=== PATIENT | female | born 1980 | race African-American/Black ===

== ENCOUNTER → 2016-09-20 | Day surgery (SDC) | payer OTHER ==
[~2016-09-20] MED LIST: ALBU2.5V5 NEB; BECL8.7A6 IH; CETI10TA22 PO; IV RINGERS,LACTATED 1000ML 1,000 ML IV SCH; LIDOCAINE 2% PF Vial for OR 5 ML VIAL. ONE; NORG1TAB34 PO; PRAV20TA2 PO; PROPOFOL 40 ML IV ONE
[2016-09-20 09:45] VITALS: BP 132/78
[2016-09-20 10:17] LABS: NEG OBC UR NEG; POS OBC UR POS
--- NOTE | 2016-09-21 12:49 | PATHOLOGY ---
PATHOLOGY REPORT * * * * * * * * FINAL DIAGNOSIS: Colorectal biopsies, rectal polyp: - Hyperplastic polyp. COMMENT: There are no adenomatous changes or evidence of malignancy. (JPM:csd; d/t: 09/21/2016) REPORT ELECTRONICALLY SIGNED BY: Garrett Fernandez M.D. DATE/TIME: 09/21/2016 12:48 * * * * * * * * GROSS PATHOLOGY: Received in formalin labeled "Nicole Evans, rectal polyp," are 7 segments of painting soft tissue measuring 0.9 x 0.4 x 0.3 cm in aggregate dimensions and ranging from 0.3 to 0.6 cm in maximum dimension. The specimen is submitted entirely in cassette A1. (KAH; 09/20/2016) INITIAL CPT CODE(S): A; 45678 Professional services performed [place] [address] Technical services performed by [facility] at [address] [place] [address], [address] [address]. SPECIMEN(S) RECEIVED: A.Rectal polyp CLINICAL HISTORY: Screening PATIENT: NICOLE EVANS /AGE: 803/02/1980 (Age: 36) PATIENT #: [id number] ALT CASE #: SPECIMEN COLLECTION DATE: 09/20/2016 SPECIMEN RECEIVED DATE: 09/20/2016 [facility] - [address] [place] [address] - PHONE: [phone] * * * END OF REPORT * * *
== END | disposition home or self-care (01) ==
LOC: ENDOS 07:55
PROVIDERS: ATTEND Internal Medicine Gastroenterology
DX: Z12.11 Encounter for screening for malignant neoplasm of colon (principal); K62.1 Rectal polyp; K64.0 First degree hemorrhoids; Z80.0 Family history of malignant neoplasm of digestive organs; E78.00 Pure hypercholesterolemia, unspecified; J45.909 Unspecified asthma, uncomplicated; F41.9 Anxiety disorder, unspecified; F10.99 Alcohol use, unspecified with unspecified alcohol-induced disorder; F17.200 Nicotine dependence, unspecified, uncomplicated
CPT/HCPCS: 45378; 81025; 88305; J2704

== ENCOUNTER → 2021-04-07 | Outpatient (CLI) | payer OTHER ==
[2016-09-20 09:45] VITALS: BP 132/78
[~2021-04-07] MED LIST changes: +ALBU2.5V8 IH; +BUDE10.2 IH; -CETI10TA22 PO; +CETI10TA74 PO; +DIPH25CA58 PO; +DOCU-109 PO; +FLUT9.9S NS; +HYDR12.58 PO; +IBUP-1060 PO; -IV RINGERS,LACTATED 1000ML 1,000 ML IV SCH; -LIDOCAINE 2% PF Vial for OR 5 ML VIAL. ONE; +NORE-43 PO; -NORG1TAB34 PO; +NORG1TAB70 PO; +OXYC1TAB15 PO; +PRAV80TA2 PO; -PROPOFOL 40 ML IV ONE
[2021-04-07 14:36] LABS: BASO # 0.1 x10^3/uL (0.0-0.2); BASO % 1 % (0-3); EOS % 1 % (0-3); HEMATOCRIT 41.4 % (36.0-47.0); HEMOGLOBIN 14.1 g/dL (12.0-15.5); LYMPH # 2.8 x10^3/uL (1.0-4.8); LYMPH % 36 % (24-48); MEAN CORPUSCULAR HEMOGLOBIN 31 pg (25-35); MEAN CORPUSCULAR HGB CONC 34 g/dL (31-37); MEAN CORPUSCULAR VOLUME 91 fL (79-100); MONO # 0.6 x10^3/uL (0.0-1.1); MONO % 7 % (0-9); NEUT # 4.5 x10^3/uL (1.8-7.7); NEUT % 56 % (31-73); PLATELET COUNT 202 x10^3/uL (140-400); RED BLOOD COUNT 4.56 x10^6/uL (3.50-5.40); RED CELL DISTRIBUTION WIDTH 13.5 % (11.5-14.5)
== END ==
LOC: SURGPAT 13:57
PROVIDERS: ATTEND Obstetrics & Gynecology
DX: Z01.818 Encounter for other preprocedural examination (principal)
CPT/HCPCS: 36415; 85025

== ENCOUNTER 2021-04-14 09:00 | Observation (INO) | payer OTHER ==
[2021-04-07 14:37] VITALS: BP 58/90
[2021-04-14] VITALS (12 sets, daily range): BP systolic 126–156; BP diastolic 82–97
[~2021-04-14] VITALS: Ht 160 cm; Wt 73.0 kg
[~2021-04-14 09:00] MED LIST changes: -DOCU-109 PO; +HYDROmorphone 2 MG/ML VIAL IVP PRN; -IBUP-1060 PO; +IV RINGERS,LACTATED 1000ML 1,000 ML IV SCH; -OXYC1TAB15 PO; +PROCHLORPERAZINE 10 MG/2 ML VIAL. IVP PRN; +ceFAZolin SODIUM IV Push 1 GM VIAL. IVP PRN; +fentaNYL PF VIAL 100 MCG/2 ML VIAL IVP PRN
[2021-04-14] MEDS ORDERED: ROCURONIUM 50 MG/5 ML VIAL. ONE (09:40)
[2021-04-14] MEDS ORDERED: fentaNYL PF VIAL 250 MCG/5 ML VIAL ONE (09:40)
[2021-04-14] MEDS ORDERED: MIDAZOLAM HCL/PF 2 MG/2 ML VIAL. ONE (09:40)
[2021-04-14] MEDS ORDERED: ONDANSETRON PF 4 MG/2 ML VIAL. ONE (09:41)
[2021-04-14] MEDS ORDERED: PROPOFOL 10 MG/ML (20ML) VIAL. IV ONE (09:41)
[2021-04-14] MEDS ORDERED: LIDOCAINE 2% PF 5 ML VIAL. ONE (09:41)
[2021-04-14] MEDS ORDERED: DEXAMETHASONE SOD PHOS 4 MG/ML VIAL ONE (09:42)
[2021-04-14] MEDS ORDERED: INDIGOTINDISULFONATE SODIUM 40 MG/5 ML AMPUL. ONE (10:16)
[2021-04-14] MEDS ORDERED: LIDOCAINE 1%/EPI 1:100,000 20 ML VIAL. ONE (10:16)
[2021-04-14] MEDS ORDERED: cefOXitin SODIUM IV Push 1 GM VIAL. IVP ONE (10:28)
[2021-04-14] MEDS ORDERED: ESMOLOL 100 MG/10 ML VIAL. IVP ONE (10:49)
[2021-04-14] MEDS ORDERED: GLYCOPYRROLATE 1 MG/5 ML VIAL. ONE (10:59)
[2021-04-14] MEDS ORDERED: NEOSTIGMINE METHYLSULFATE 5 MG/5 ML SYRINGE. ONE (10:59)
--- NOTE | 2021-04-14 11:25 | PDOC ---
BRIEF OPERATIVE NOTE Date: Apr 14, 2021 Pre-Op Diagnosis BENITEZ 3 Post-Op Diagnosis Same Procedure Performed [facility] Surgeon Dr. 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 fallopian tubes Findings nml size uterus, nml fallopian tubes and ovaries terese.; BENITEZ 3 Complications none Operative Note see dictation PALLAVI CALVILLO Jr, MD Apr 14, 2021 11:25
[2021-04-14] MEDS ORDERED: DEXTROSE 50% 25 GM / 50ML DISP.SYRIN. IV PRN (11:30)
[2021-04-14] MEDS ORDERED: diphenhydrAMINE 50 MG/ML VIAL IV PRN (11:30)
[2021-04-14] MEDS ORDERED: diphenhydrAMINE HCL 25 MG CAPSULE PO PRN (11:30)
[2021-04-14] MEDS ORDERED: OXYC1TAB15 PO (11:30)
[2021-04-14] MEDS ORDERED: PROCHLORPERAZINE 10 MG/2 ML VIAL. IV PRN (11:30)
[2021-04-14] MEDS ORDERED: OPIUM/BELLADONNA 30/16.2MG SUPP.RECT. PR PRN (11:30)
[2021-04-14] MEDS ORDERED: ONDANSETRON PF 4 MG/2 ML VIAL. IV PRN (11:30)
[2021-04-14] MEDS ORDERED: CALCIUM CARBONATE 500 MG TAB.CHEW PO PRN (11:30)
[2021-04-14] MEDS ORDERED: SIMETHICONE 80 MG TAB.CHEW PO PRN (11:30)
[2021-04-14] MEDS ORDERED: DOCU-109 PO (11:30)
[2021-04-14] MEDS ORDERED: 0.9 % SODIUM CHLORIDE 10 ML DISP.SYRIN. IV PRN (11:30)
[2021-04-14] MEDS ORDERED: ZOLPIDEM 5 MG TABLET. PO PRN (11:30)
[2021-04-14] MEDS ORDERED: IBUP-1060 PO (11:30)
--- NOTE | 2021-04-14 11:31 | DISCH ---
DISCHARGE INSTRUCTIONS Condition on Discharge Condition on Discharge: Stable Activity After Discharge Activity Instructions for Disc: Activity as tolerated Lifting Instructions after Dis: No heavy lifting Driving Instructions after Dis: No driving for 2 weeks Diet after Discharge Diet after Discharge: Regular Contacting the DRChuck after DC Call your doctor for: Concerns you may have Follow-Up Follow up with: Dr. Calvillo in 2 wks PALLAVI CALVILLO Jr, MD Apr 14, 2021 11:31
--- NOTE | 2021-04-14 11:34 | OP ---
DATE OF SURGERY: 04/14/2021 PREOPERATIVE DIAGNOSIS: Cervical intraepithelial neoplasia 3. POSTOPERATIVE DIAGNOSIS: Cervical intraepithelial neoplasia 3. PROCEDURE: Transvaginal hysterectomy. SURGEON: David Calvillo MD OYSTER FLOATER: Kwaku. ANESTHESIA: GETA. ESTIMATED BLOOD LOSS: 50 mL. COMPLICATIONS: None. FINDINGS: Normal size uterus, normal fallopian tubes, normal ovaries bilaterally, BENITEZ 3 for cervical dysplasia. SUMMARY: A 41-year-old with BENITEZ 3 on colposcopic biopsy requiring hysterectomy. The patient was counseled on the risks, benefits and expectations and voiced clear understanding to proceed. DESCRIPTION OF PROCEDURE: The patient was taken to surgery suite and placed in dorsal lithotomy position, was prepped with Betadine solution and draped in a sterile fashion. After adequate anesthesia, weighted speculum and curved Olayinka placed vaginally. Madai clamps were placed on the anterior and posterior lip of the cervix. The cervix was injected with 1% lidocaine with epinephrine in circumferential manner. Bovie cautery was utilized to circumscribe the cervix. The vaginal mucosa was dissected away from the lower uterine segment using blunt dissection and moist Ray-Elisabeth. Parametrial tissue was clamped bilaterally with curved Ahmet clamps, cut and suture ligated with 2-0 Vicryl suture. Posterior cul-de-sac was entered sharply using curved Jensen scissors. Uterosacral ligaments were clamped bilaterally, cut and suture ligated. Cardinal ligaments were clamped bilaterally, cut and suture ligated. We then entered the anterior cul-de-sac with blunt dissection with a moist Ray-Elisabeth. The uterus was then retroverted. The round ligament, uteroovarian pedicles were clamped bilaterally, cut and suture ligated. The left fallopian tube was identified and grasped with [place], clamped with curved Ahmet clamp, cut and suture ligated. Same process was placed at the right fallopian tube. The ovaries appeared normal bilaterally. A modified Bautista's culdoplasty was performed incorporating the uterosacral ligaments bilaterally. The remainder of the vaginal cuff was reapproximated using 2-0 Vicryl suture in docicy-ny-ifkqr manner. Moist vaginal packing was placed. Shelton catheter was placed eliciting clear yellow urine. The patient tolerated the procedure well and was taken to recovery room in stable condition. Sponge and needle count correct x 3. BORIS/KAITLIN DR: Fredi TID: [id number]
[2021-04-14] MEDS ORDERED: fentaNYL PF VIAL 100 MCG/2 ML VIAL ONE (11:43)
[2021-04-14] MEDS ORDERED: MORPHINE SULFATE 2 MG/ML INJ. ONE (11:44)
[2021-04-14] MEDS: MORPHINE SULFATE 2 MG/ML INJ. IVP PRN ×2 (11:48→11:58)
[2021-04-14] MEDS: fentaNYL PF VIAL 100 MCG/2 ML VIAL IVP PRN ×2 (11:48→12:08)
[2021-04-14] MEDS: GABAPENTIN 300 MG CAPSULE. PO SCH ×2 (13:56→22:08)
[2021-04-14] MEDS: KETOROLAC 30 MG/ML VIAL. IV PRN ×2 (15:13→22:08)
--- NOTE | 2021-04-14 15:37 | NUR ---
Telephone PACU report received from Darlin RN at 1207 and pt was recieved to ROOM [phone] per transport team at 1226
[2021-04-14] MEDS: oxyCODONE/APAP 5/325 1 TAB TABLET PO PRN (20:27)
[2021-04-15 00:48] VITALS: BP 130/84
[2021-04-15] MEDS: oxyCODONE/APAP 5/325 1 TAB TABLET PO PRN (03:58)
[2021-04-15 04:02] VITALS: BP 134/83
[2021-04-15] MEDS: GABAPENTIN 300 MG CAPSULE. PO SCH (06:10)
[2021-04-15 07:39] LABS: BASO % 0 % (0-3); EOS % 0 % (0-3); HEMOGLOBIN 12.3 g/dL (12.0-15.5); LYMPH # 1.2 x10^3/uL (1.0-4.8); LYMPH % 13 % (24-48); MEAN CORPUSCULAR HEMOGLOBIN 31 pg (25-35); MEAN CORPUSCULAR HGB CONC 34 g/dL (31-37); MEAN CORPUSCULAR VOLUME 91 fL (79-100); MONO # 0.6 x10^3/uL (0.0-1.1); MONO % 6 % (0-9); NEUT # 7.4 x10^3/uL (1.8-7.7); NEUT % 80 % (31-73); PLATELET COUNT 171 x10^3/uL (140-400); RED BLOOD COUNT 3.96 x10^6/uL (3.50-5.40); RED CELL DISTRIBUTION WIDTH 13.3 % (11.5-14.5); WHITE BLOOD COUNT 9.2 x10^3/uL (4.0-11.0)
[2021-04-15 07:50] VITALS: BP 129/75
[2021-04-15] MEDS ORDERED: FLU VACC QUAD 21-22 (6MOS+) PF 0.5 ML SYRINGE. VAX IM ONE (10:30)
[2021-04-15 12:58] VITALS: BP 146/88
--- NOTE | 2021-04-15 14:19 | NUR ---
Discharge Note: NICOLE EVANS Discharge instructions and discharge home medications reviewed with Patient and a copy given. All questions have been answered and understanding verbalized. The following instructions and handouts were given: Hysterectomy, Care After, Jaoo-hq-Vbym Docusate Ibuprofen Oxycodone/Acetaminophen Patient discharged to home with self-care via WC to private vehicle.
--- NOTE | 2021-04-19 16:10 | PATHOLOGY ---
[facility] Accession Number: [id number] . 01 Material submitted: . uterus - CERVIX AND UTERUS, RIGHT AND LEFT TUBE . 01 Clinical history: . TRANSVAGINAL HYSTERECTOMY CIN3 . 02 Diagnosis: Uterus and detached bilateral fallopian tubes, transvaginal hysterectomy and bilateral salpingectomy: - Severe dysplasia/carcinoma in situ (BENITEZ 3) with superficial endocervical glandular extension, focal. - Exocervical margin negative for dysplasia. - Chronic cervicitis with focal squamous metaplasia. - Nabothian cysts, cervix. - Inactive/atrophic pattern endometrium. - Adenomyosis, uterine corpus (uterine weight 77 grams). - Congestion of bilateral fallopian tubes. (JPM:isha; 04/18/2021) [facility] 04/19/2021 1435 Local . 02 Comment: The entire cervix is submitted for histologic evaluation. There is a small focus of severe dysplasia/carcinoma in situ (BENITEZ 3) with superficial endocervical glandular extension in the region of the squamocolumnar junction. The exocervical margin is negative for BENITEZ 3. There is no evidence of invasive carcinoma. (JPM:isha; 04/19/2021) . 02 Electronically signed: . Garrett Fernandez MD, Pathologist NPI- [id number] . 01 Gross description: . Fixative: Formalin Labeled: Cervix, uterus, right and left fallopian tube Specimen received: Uterus with attached cervix and detached fallopian tubes Uterus weight: 77 g Uterus: 8.3 x 4.4 x 4.0 cm Serosa: [place]-painting, smooth Ectocervix: Pale painting, smooth to slightly disrupted Cervical os: Slit-like, measuring 1.0 cm Endocervical canal: 2.5 cm Endometrial cavity: 4.3 x 2.4 cm Endometrium: Pale painting, glistening to granular Endometrial thickness: 0.1 cm Myometrium: Painting-pink, trabeculated Myometrium thickness: Up to 2.3 cm Lesions/abnormalities: None identified First fallopian tube: 1 g, fimbriated; 2.5 cm in length, 0.5 cm in diameter First fallopian tube cut surface: Patent lumen Second fallopian tube: 1 g, fimbriated; 3.4 cm in length, 0.5 cm in diameter Second fallopian tube cut surface: Patent lumen . Hospit[employer]les sections are submitted as follows: A1 12:00 cervix A2 6:00 cervix A3 anterior endomyometrium A4 posterior endomyometrium A5 high school admissions representative sections from first fallopian tube, to include fimbria A6 high school admissions representative sections from second fallopian tube, to include fimbria (CAA; 04/15/2021) . After initial microscopic examination, the remainder of the cervix is submitted as follows: . A7-A9 12:00 to 3:00 cervix A10-A11 3:00 to 6:00 cervix A12-A14 6:00 to 9:00 cervix A15-A16 9:00 to 12:00 cervix. (CAA; 04/18/2021) [facility] 04/18/2021 1602 Local . 02 Pathologist provided ICD-10: D06.7, N72, N85.8, N80.0 . 02 CPT . 153644 Specimen Comment: A courtesy copy of this report has been sent to [phone], [phone] Specimen Comment: [id number] Specimen Comment: Report sent to / DR GARZON Specimen Comment: A duplicate report has been generated due to demographic updates. [facility]formed at: [facility] [address] [facility] [address], [place] [id number] MD Kerwin Hemphill MD Phone: [phone] [facility]formed [facility]: [facility] [address], [place] [id number] MD Garrett Fernandez MD Phone: [phone]
== END 2021-04-15 13:27 | disposition home or self-care (01) ==
LOC: SURG 09:00 → 3 NORTH 11:26
PROVIDERS: ADMIT Obstetrics & Gynecology; ATTEND Obstetrics & Gynecology
DX: D06.9 Carcinoma in situ of cervix, unspecified (principal); Z23 Encounter for immunization
CPT/HCPCS: 36415; 58260; 81025; 85025; 88309; 90471; 90686; 96374; 96375; 96376; A4314; A4930; G0378; G0379; J0690; J1100; J1170; J1885; J2250; J2270; J2405; J2704; J2710; J3010; J3490; J0694